=== PATIENT | male | born 1985 | race Hispanic/Latino ===

== ENCOUNTER 2021-06-08 20:26 | Emergency (ER) | payer OTHER ==
[~2021-06-08] VITALS: Ht 177.8 cm; Wt 81.6 kg
[2021-06-08 20:29] VITALS: BP 103/72
[2021-06-08] MEDS ORDERED: IBUPROFEN 800 MG TAB PO ONE (21:00)
[2021-06-08] MEDS ORDERED: KETOROLAC 30MG VIAL (30MG/ML) IV ONE (21:00)
[2021-06-08] MEDS ORDERED: 0.9%NACL 1000ML 1,000 ML IV ONE ×2 (21:00→21:39)
[2021-06-08] MEDS ORDERED: ACETAMINOPHEN 500 MG TABLET PO ONE (21:00)
[2021-06-08 21:28] LABS: APPEARANCE,URINE Clear (CLEAR); BILIRUBIN,URINE Negative (NEGATIVE); COLOR,URINE Yellow (YELLOW); GLUCOSE, URINE (UA) Negative (NEGATIVE); KETONES,URINE Negative (NEGATIVE); LEUKOCYTE ESTERASE ,URINE Negative (NEGATIVE); NITRATE,URINE Negative (NEGATIVE); OCCULT BLOOD,URINE Negative (NEGATIVE); PH,URINE 5.5 (5.0-8.0); PROTEIN,URINE Trace mg/dL (NEGATIVE)
[2021-06-08] MEDS ORDERED: KETOROLAC 30MG VIAL (30MG/ML) ONE (21:38)
[2021-06-08 21:49] LABS: BASOPHILS % (AUTO) 0.2 % (0.0-5.0); HEMATOCRIT 43.9 % (42-54); LYMPHOCYTES % (AUTO) 29.2 % (21.0-51.0); MEAN CORPUSCULAR HEMOGLOBIN 32.7 pg (27.0-33.0); MEAN CORPUSCULAR HGB CONC 36.2 g/dL (32.0-36.0); MEAN CORPUSCULAR VOLUME 90.3 fL (79-99); MONOCYTES % (AUTO) 7.8 % (3.0-13.0); NEUTROPHILS % (AUTO) 62.6 % (40.0-77.0); PLATELET COUNT (AUTO) 146 K/uL (130-400); RED BLOOD CELL COUNT(AUTO) 4.86 MIL/uL (4.50-6.20); RED CELL DISTRIBUTION WIDTH 11.9 % (11.0-15.5); WHITE BLOOD COUNT (AUTO) 4.1 K/uL (4.8-10.8)
[2021-06-08 21:57] LABS: POTASSIUM 3.1 mmol/L (3.5-5.1)
[2021-06-08 22:02] LABS: ALBUMIN 3.9 g/dL (3.5-5.0); BILIRUBIN,TOTAL 0.4 mg/dL (0.2-1.0); TOTAL PROTEIN, SERUM 7.7 g/dL (6.0-8.3)
[2021-06-08] MEDS ORDERED: ALBUHFA IH (22:25)
[2021-06-08] MEDS ORDERED: NAPR-1180 PO (22:25)
[2021-06-08] MEDS ORDERED: AZIT500T PO (22:25)
[2021-06-08] MEDS ORDERED: ACET-2247 PO (22:25)
[2021-06-08] MEDS ORDERED: POTASSIUM BICARB/CIT AC 25 MEQ TABLET.EFF PO ONE (22:30)
[2021-06-08] MEDS ORDERED: AZITHROMYCIN 250 MG TABLET PO ONE ×2 (22:30→22:53)
[2021-06-08] MEDS ORDERED: CEFTRIAXONE 1G VIAL IVP ONE (22:30)
[2021-06-08] MEDS ORDERED: POTASSIUM BICARB/CIT AC 25 MEQ TABLET.EFF ONE (22:52)
[2021-06-08] MEDS ORDERED: CEFTRIAXONE 1G VIAL ONE (22:52)
[2021-06-08 23:20] VITALS: BP 124/72
== END 2021-06-08 23:17 | disposition home or self-care (01) ==
LOC: EDH 20:26
DX: U07.1 COVID-19 (principal); E86.0 Dehydration; G44.209 Tension-type headache, unspecified, not intractable; Z79.899 Other long term (current) drug therapy
CPT/HCPCS: 36415; 71045; 80053; 81003; 85025; 87635; 87804 ×2; 87880; 96361; 96374; 96375; 99284; C9803; J0696; J1885; J7030